=== PATIENT | female | born 1970 | race African-American/Black ===

== ENCOUNTER 2018-08-21 01:49 | Emergency (ER) | payer OTHER ==
[~2018-08-21] VITALS: Ht 170.2 cm; Wt 59.9 kg
[2018-08-21 02:00] VITALS: BP 135/90
[2018-08-21 02:52] LABS: Basophils # (auto) 0.2 uL; Eosinophils # (auto) 0 uL; Hemoglobin 8.5 g/dL (12.2-16.2); Nucleated Red Blood Cells % 0.1 %
[2018-08-21 02:54] LABS: Basophils % (auto) 2.2 % (0.0-2.0); Eosinophils % (auto) 0.3 % (0.0-7.0); Lymphocytes # (auto) 2.5 uL; Lymphocytes % (auto) 29.9 % (10.0-50.0); Mean Corpuscular Hemoglobin 16.7 pg (28.0-32.0); Mean Corpuscular Hgb Conc. 29.2 g/dL (32.0-36.0); Mean Corpuscular Volume 57.2 fL (80.0-100.0); Monocytes # (auto) 0.9 uL; Monocytes % (auto) 10.8 % (0.0-12.0); Neutrophils # (auto) 4.7 uL; Neutrophils % (auto) 56.8 % (37.0-80.0); Platelet Count (auto) 405 10^3/uL (140-450); Red Blood Cells 5.07 10^6/uL (4.0-5.20); White Blood Cell 8.3 10^3/uL (4.4-10.8)
[2018-08-21 02:56] LABS: Red Cell Distribution Width 21.7 % (11.8-14.3)
[2018-08-21 03:02] LABS: INR 0.93 (0.9-1.15); Partial Thromboplastin Time 24.6 sec (23.64-32.05); Prothrombin Time 10.1 sec (9.06-12.60)
[2018-08-21 03:05] LABS: Alanine Aminotransferase 15 U/L (13-56); Albumin 3.6 g/dL (3.4-5.0); Anion Gap 10 (5-15); Aspartate Aminotransferase 14 U/L (15-37); BUN/Creatinine Ratio 8.3; Blood Urea Nitrogen 7 mg/dL (7-18); Calcium 9.3 mg/dL (8.5-10.1); Carbon Dioxide 21 mmol/L (21-32); Chloride 107 mmol/L (98-107); GFR African American 93 mL/min; GFR Non-African American 77 mL/min; Glucose 82 mg/dL (74-106); Potassium 3.8 mmol/L (3.5-5.1); Sodium 138 mmol/L (136-145)
[2018-08-21 03:10] LABS: Alkaline Phosphatase 74 U/L (45-117); Bilirubin, Total 0.4 mg/dL (0.2-1.0); Total Protein 8.4 g/dL (6.4-8.2)
== END 2018-08-21 04:22 | disposition home or self-care (01) ==
LOC: EDBD 01:49 → ER 01:50
DX: F41.9 Anxiety disorder, unspecified (principal); J06.9 Acute upper respiratory infection, unspecified; D64.9 Anemia, unspecified; F12.10 Cannabis abuse, uncomplicated
CPT/HCPCS: 36415; 71045; 80053; 83880; 84484; 85025; 85610; 85730; 93005

== ENCOUNTER 2022-03-14 15:48 | Emergency (ER) | payer MEDICAID, OTHER ==
[~2022-03-14] VITALS: Ht 162.6 cm; Wt 59.0 kg
[2022-03-14 16:43] VITALS: BP 121/81
[2022-03-14] MEDS ORDERED: ACETAMINOPHEN 325 MG TAB PO ONE (18:30)
[2022-03-14] MEDS ORDERED: MECLIZINE HCL 25 MG TAB PO ONE (18:45)
== END 2022-03-14 19:23 | disposition home or self-care (01) ==
LOC: EDBD 15:48 → ER 15:48 → EDUNIT# 15:48 → ER 19:22
DX: M25.512 Pain in left shoulder (principal); R07.81 Pleurodynia; J45.909 Unspecified asthma, uncomplicated; F17.210 Nicotine dependence, cigarettes, uncomplicated; F12.10 Cannabis abuse, uncomplicated; R51.9 Headache, unspecified; V43.52XA Car driver injured in collision with other type car in traffic accident, initial encounter; Y93.89 Activity, other specified; Y92.89 Other specified places as the place of occurrence of the external cause; Y99.8 Other external cause status
CPT/HCPCS: 70450; 72125; 73030; 99284; J8597